=== PATIENT | female | born 1945 | race African-American/Black ===

== ENCOUNTER 2019-10-10 01:14 | Emergency (ER) | payer MEDICARE, OTHER ==
[~2019-10-10] VITALS: Ht 162.6 cm; Wt 118.0 kg
[2019-10-10 02:08] LABS: BASOPHILS # (AUTO) 0.03 x10^3/uL (0-0.1); BASOPHILS % (AUTO) 0 % (0-1); EOSINOPHILS # (AUTO) 0.07 x10^3/uL (0-0.4); EOSINOPHILS % (AUTO) 1 % (1-7); LYMPHOCYTES # (AUTO) 1.59 x10^3/uL (1-3.4); LYMPHOCYTES % (AUTO) 21 % (22-44); MD NO; MEAN CORPUSCULAR HEMOGLOBIN 30.9 pg (27.0-34.8); MEAN CORPUSCULAR HGB CONC 33.5 g/dL (32.4-35.8); MEAN CORPUSCULAR VOLUME 92.3 fL (80-100); MEAN PLATELET VOLUME 8.8 fL (7.4-10.4); MONOCYTES # (AUTO) 0.79 x10^3/uL (0.2-0.8); MONOCYTES % (AUTO) 10 % (2-9); NEUTROPHILS # (AUTO) 5.15 x10^3/uL (1.8-6.8); NEUTROPHILS % (AUTO) 68 % (42-75); PLATELET COUNT 238 x10^3/uL (130-400)
[2019-10-10 02:15] LABS: ALANINE AMINOTRANSFERASE 26 U/L (12-78); ALBUMIN 3.5 g/dL (3.4-5.0); ANION GAP 5 mmol/L (5-15); CALCIUM 8.8 mg/dL (8.5-10.1); CHLORIDE 109 mmol/L (98-107); CREATININE 1.06 mg/dL (0.55-1.02)
[2019-10-10 02:17] LABS: ALKALINE PHOSPHATASE 63 U/L (45-117); BILIRUBIN,TOTAL 1.1 mg/dL (0.2-1.0); TOTAL PROTEIN 7.8 g/dL (6.4-8.2)
--- NOTE | 2019-10-10 02:27 | NUR ---
LABS DRAWN, STRAIGHT CATH COMPLETED UTILIZING STERILE TECHNIQUE. URINE SENT TO LAB.
--- NOTE | 2019-10-10 02:38 | NUR ---
US TO BEDSIDE.
[2019-10-10 03:01] LABS: MICROSCOPIC INDICATED
--- NOTE | 2019-10-10 03:17 | NUR ---
PT SLEEPING AT THIS TIME. AWAITING RESULTS.
[2019-10-10] MEDS ORDERED: CEFTRIAXONE PMX 1GM/50ML 50 ML IV ONE (04:00)
[2019-10-10] MEDS: PLEASE ENTER ALLERGIES MC SCH ×2 (04:00→11:24)
[2019-10-10] MEDS ORDERED: CEFTRIAXONE PMX 1GM/50ML 50 ML ONE (04:08)
--- NOTE | 2019-10-10 05:00 | NUR ---
SPOKE WITH GABE SCHAFER RN AND ROEL PT IS ANGRY SHE IS BEING D/C. CONTINUE WITH PLAN TO D/C.
--- NOTE | 2019-10-10 07:09 | NUR ---
REPORT TO YOLANDA BROWN
--- NOTE | 2019-10-10 07:16 | NUR ---
report received from rosaura johnson.
--- NOTE | 2019-10-10 07:59 | NUR ---
PT IS UPSED D/T DC. PT STATES"I'M IN PAIN. MY SCOOTER IS IN [facility] AND MY WHEELCHAIR IN [facility]. I DON'T KNOW WHAT I DO IF YOU DC ME."
--- NOTE | 2019-10-10 08:57 | NUR ---
PT SLEEPING IN [facility]. RESPS EVEN AND UNLABORED. ALL MONITORS IN PLACE. CALL LIGHT WITHIN REACH.
--- NOTE | 2019-10-10 09:41 | NUR ---
diet tray ordered. edmd ok'd to give regular diet.
--- NOTE | 2019-10-10 09:45 | NUR ---
PT SLEEPING IN [facility]. RESPS EVEN AND UNLABORED. ALL MONITORS IN PLACE. CALL LIGHT WITHIN REACH.
--- NOTE | 2019-10-10 10:04 | NUR ---
diet tray provided at this time.
--- NOTE | 2019-10-10 11:08 | NUR ---
PT RESTING IN GURNEY. RESPS EVEN AND UNLABORED. PT'S AOX4. AWAITING SW. ADRIA FARRAR NOTIFIED PT NEEDS SW.
--- NOTE | 2019-10-10 11:47 | NUR ---
sw will see pt soon. pt resting in [facility]. pt's aox4. resps even and unlabored.
--- NOTE | 2019-10-10 12:37 | NUR ---
BREAK RN. GUDINO AT BEDSIDE.
[2019-10-10 13:08] VITALS: BP 139/76
--- NOTE | 2019-10-10 13:20 | NUR ---
diet tray provided at this time.
--- NOTE | 2019-10-10 14:19 | NUR ---
pt talking on the phone. all monitors removed and piv removed at this time. pt is ready to change and ready to dc at this time.
--- NOTE | 2019-10-10 14:40 | NUR ---
pt refused shea's plan at this time. shea paged.
--- NOTE | 2019-10-10 14:56 | NUR ---
sw at bedside at this time and explained dc plan. pt agreed at this time.
--- NOTE | 2019-10-10 14:57 | NUR ---
report given to lacey johnson.
--- NOTE | 2019-10-10 14:57 | NUR ---
bedside comode at bedside per request. pt's aox4. resps even and unlabored.
--- NOTE | 2019-10-10 15:08 | NUR ---
BEDSIDE REPORT TO YOLANDA RN, PT CLEANED AND PUT IN CLOTHES TO BE DISCHARED TO FACILITY. 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
== END 2019-10-10 15:28 | disposition short-term general hospital (02) ==
LOC: ED 02:07
DX: G89.29 Other chronic pain (principal); M25.571 Pain in right ankle and joints of right foot; R62.7 Adult failure to thrive; I49.3 Ventricular premature depolarization; I11.9 Hypertensive heart disease without heart failure; R00.0 Tachycardia, unspecified; Z72.9 Problem related to lifestyle, unspecified
CPT/HCPCS: 36415; 71045; 73610; 80053; 81001; 85025; 87086; 93005; 93971; 96365; 99285; J0696